=== PATIENT | female | born 1995 | race Caucasian/White ===

== ENCOUNTER 2016-11-13 23:20 | Observation (INO) ==
--- NOTE | 2016-11-18 18:33 | OB/GYN Progress Note ---
Date of Encounter: 11/13/16 Time of Encounter: 23:50 - Assessment and Plan (1) 37 weeks gestation of Status: Acute Pt presents with c/o contractions. She is having irregular contractions and no cervical change. Will d/c home. Labor precautions given. (2) False labor Status: Acute Subjective - Subjective Principal diagnosis: Contractions Interval history: Pt presents with c/o contractions. No vb or lof, + GFM Objective - Exam FHR: category 1
== END 2016-11-14 02:32 | disposition home or self-care (01) ==
LOC: 1NENULAB
PROVIDERS: ADMIT Obstetrics & Gynecology; ATTEND Obstetrics & Gynecology

== ENCOUNTER 2016-11-22 19:50 | Observation (INO) ==
[2016-11-22 21:04] LABS: Bilirubin,Urine Negative (Negative); Blood,Urine Negative (Negative); Clarity,Urine Cloudy (Clear); Color,Urine Yellow (Yellow); Glucose,Urine (UA) Normal (Normal); Ketones,Urine Negative (Negative); Leukocyte Esterase,Urine Trace (Negative); Nitrite,Urine Negative (Negative); PH,Urine 5.5 pH Units (5.0-8.0); Protein,Urine Negative (Neg-Trace); Specific Gravity,Urine 1.015 (1.010-1.025); Urobilinogen,Urine Normal (Normal)
[2016-11-22 21:08] LABS: Bacteria,Urine Few per hpf (None-Few); Hyaline Casts,Urine None Seen per lpf (None-Few); RBC,Urine 0-3 per hpf (0-3); Squamous Epithelial Cell,Urine Many per lpf (None-Few)
--- NOTE | 2016-11-22 21:38 | OB/GYN Progress Note ---
Date of Encounter: 11/22/16 Time of Encounter: 21:36 - Assessment and Plan (1) 38 weeks gestation of Current Visit: Yes Status: Acute (2) False labor Current Visit: No Status: Acute Subjective - Subjective Principal diagnosis: contractions, possible LOF Interval history: 21 yo at 38 weeks gestation presents with possible LOF and contractions since last week. Objective - Vital Signs Vital Signs: Intake and Output 11/22/16 11/22/16 11/22/16 07:59 15:59 23:59 Other: Weight 74.2 kg Patient Weight 11/22/16 23:59 Weight 74.2 kg - Exam FHR: category 1 Auscultation: bilateral: normal Abdomen: Present: gravid Cervical dilation: 3 Cervix effacement: 70 station: -2 - Labs Labs: Abnormal lab results Urine Clarity Cloudy (Clear) A 11/22/16 20:50 Ur Leukocyte Esterase Trace (Negative) H 11/22/16 20:50 Urine Microscopic WBC 5-15 per hpf (0-3) H 11/22/16 20:50 Ur Squamous Epith Cells Many per lpf (None-Few) H 11/22/16 20:50 Ur Culture Indicated? YES (NO) A 11/22/16 20:50
== END 2016-11-22 21:43 | disposition home or self-care (01) ==
LOC: 1NENULAB
PROVIDERS: ADMIT Obstetrics & Gynecology; ATTEND Obstetrics & Gynecology

== ENCOUNTER 2016-11-28 08:00 | Inpatient (IN) ==
--- NOTE | 2016-11-28 08:37 | OB/GYN History & Physical ---
Date of Encounter: 11/28/16 Time of Encounter: 08:35 Assessment and Plan (1) 39 weeks gestation of Current visit: Yes Status: Acute (2) Susceptible to Varicella (non-immune), currently in third trimester Current visit: Yes Status: Acute (3) Elective induction of labor planned Current visit: Yes Status: Acute History of Present Illness HPI: Ms. Hoover is a 21 year old female with an EDC of 12/02/16 at 39 weeks and 3 days for induction of labor. See full H&P in eCW. GBS screen negative, Rubella Immune, Varicella Non-Immune, A positive. 1 hr GTT abnormal, 3 Hr GTT WNL. U/S last Monday with EFW 3637 grams (84%) with an SARAH 8.9 cm. Past Med Surg Social Fam HX - Past Medical History Medical history: no medical history Psychiatric history: no psych history - Social History Smoking Status: Never smoker Alcohol use: none Drug use: none - Family History Father Adopted: No Family Member Ethnicity: Non- Living Status: Hx Family Cardiac Disorders: Yes (htn) Hx Family Respiratory Disorders: No Hx Family Cancer: No Hx Family GI Disorders: Yes (cyrosis) Hx Family Endocrine Disorder: Yes (diabetes) Hx Family Neuromuscular Disorders: No Hx Family Neurologic Disorders: No Hx Family HEENT Disorders: No Hx Family Autoimmune Disorders: No Medications and Allergies Ferrous Sulfate 325 mg PO DAILY 11/22/16 [History] Formula Tablet 1 tab PO DAILY 11/22/16 [History] Allergies No Known Allergies Allergy (Verified 11/22/16 19:53) Exam - Cervix Dilation: 4 Effacement: 80 Station: -1 Results All other labs normal.
[2016-11-28] MEDS ORDERED: Metoclopramide 10 MG/2 ML VIAL IVP PRN (08:41)
[2016-11-28] MEDS ORDERED: miSOPROStol 25 MCG TABLET PO PRN (08:41)
[2016-11-28] MEDS ORDERED: Famotidine 20 MG/2 ML VIAL IVP PRN (08:41)
[2016-11-28] MEDS ORDERED: *HR* Nalbuphine 20 MG/ML AMPUL IVP PRN (08:44)
[2016-11-28 09:25] LABS: Basophils % 0.3 %; Eosinophils # 0.2 K/mcL (0.0-0.6); Eosinophils % 1.7 %; Hematocrit 38.2 % (35.3-44.9); Hemoglobin 12.3 g/dL (11.5-15.4); Immature Granulocytes % 0.3 % (0-4); Lymphocytes # 1.8 K/mcL (0.6-4.6); Lymphocytes % 17.9 %; Mean Corpuscular HGB Conc 32.2 g/dL (31.6-35.5); Mean Corpuscular Hemoglobin 26.2 pg (28.0-33.3); Mean Corpuscular Volume 81.3 fL (83.0-100.0); Mean Platelet Volume 11.9 fL (9.4-12.4); Monocytes # 0.6 K/mcL (0.0-1.3); Monocytes % 6.1 %; Neutrophils # 7.6 K/mcL (1.6-8.9); Platelet Count 247 K/mcL (140-400); Red Cell Distribution Width 15.6 % (11.5-14.5); Segmented Neutrophils % 73.7 %
--- NOTE | 2016-11-28 09:28 | Anesthesia Evaluation PreOp ---
Addendum entered and electronically signed by Adams Brito CRNA 11/28/16 09: 30: Laboratory Tests 11/28/16 08:40 WBC 10.3 Hgb 12.3 Hct 38.2 Plt Count 247 Original Note: Date of Encounter: 11/28/16 Time of Encounter: 09:26 - Past History Planned Operation: nela Cardiac History: Denies any Significant Hx Pulmonary History: Denies Any Significant HX DERMATOLOGY SPECIALIST History: Denies Any Significant HX Other Medical History: Denies Any Significant HX, Renal (lithiasis) Anesthesia History: No Prior Anesthetic Complications, Past Anesthesia (kidney stone extraction) : Yes (, 39 weeks) Alcohol Use: none Drug use: none Medications and Allergies No Known Home Drugs 11/28/16 [History] Allergies No Known Allergies Allergy (Verified 11/28/16 08:52) - Meds/Allergy Pre-op Review Medications Reviewed: Yes Allergies Reviewed: Yes Beta Blockers on Current Med List: No Anesthesia Exam O2 Sat Height 1.5 m Weight 74.8 kg bp 130/76 Height: 49 Weight: 74 - HEENT Pupil (Motor): Pupils equal Mallampati: II Teeth: Normal Oral Opening: Greater than 3 - DERMATOLOGY SPECIALIST LOC: Oriented DERMATOLOGY SPECIALIST Motor: Normal RUE, Normal LUE, Normal RLE, Normal LLE, Normal Face DERMATOLOGY SPECIALIST Sensory: Normal: RUE, LUE, RLE, LLE, Face - Cardiac Rhythm: Regular Murmur: None JVD: No Carotid Bruit: No - Pulmonary Breath Sounds: bilateral Clear Respiratory Effort: Symmetrical Anesthesia Assess/Plan ASA Score: 2 Modified Kadi Scale for Level of Consciousness: Cooperative, oriented, and tranquil Anesthetic Plan: Regional Monitoring Plan: Standard Monitors
[2016-11-28] MEDS ORDERED: Ringers Solution, Lactated 1,000 ML ONE (12:40)
--- NOTE | 2016-11-28 12:40 | OB Labor Progress Note ---
Date of Encounter: 11/28/16 Time of Encounter: 12:38 Labor Progress Note - Subjective Subjective: Patient breathing through contractions. Discussed POC with patient. Patient denies any questions or concerns. - Cervix Cervix: 5.5/90/-1 - Heart Tones Heart Tones: 145 bpm moderate variability +15x15 accels no decels noted. Cat. 1 tracing. - [place]: 1-2.5 min apart. - Interventions Interventions: SVE, AROM moderate amount of clear fluid. IUPC placed without difficulty. Patient tolerated well. - Plan Plan: Continue labor management. Patient may have Nubain or epidural for pain management if desires.
[2016-11-28] MEDS: Ringers Solution, Lactated 1,000 ML IVC SCH ×2 (12:49→14:18)
[2016-11-28] MEDS ORDERED: Epidural Premix (fent/bupiv) 110 ML EP ONE (12:54)
[2016-11-28] MEDS ORDERED: Bupivacaine-MPF 0.25% 10 ML VIAL ONE (12:54)
[2016-11-28] MEDS ORDERED: *HR* FentaNYL (PF) 100 MCG/2 ML VIAL ONE (12:54)
[2016-11-28] MEDS ORDERED: Ondansetron 4 MG/2 ML VIAL IVP PRN (13:23)
[2016-11-28] MEDS ORDERED: EPHEDrine 50 MG/ML VIAL IVP PRN (13:23)
[2016-11-28] MEDS ORDERED: Bupivacaine-MPF 0.25% 10 ML VIAL EP ONE (13:23)
[2016-11-28] MEDS ORDERED: *HR* FentaNYL (PF) 100 MCG/2 ML VIAL EP ONE (13:23)
[2016-11-28] MEDS ORDERED: Ringers Solution, Lactated 500 ML IVC ONE (13:23)
--- NOTE | 2016-11-28 13:27 | Anesthesia Procedures ---
Date of Encounter: 11/28/16 Time of Encounter: 13:00 Procedures: Anesthesia - Epidural/Spinal Patient ID/Chart reviewed: Yes Patient examined: Yes OB Eval: Contractions: Non-stressed pattern Supplemental Oxygen: None/Room Air Site Prep: Aseptic Technique, 0.5% Chlorhexidine/Alcohol Patient position: upright Local Anesthetic: Lidocaine 1% Amount of Local Anesthetic used: 3 Touhy Needle Gauge: 18 Touhy Needle Depth (cm): 5 Catheter Depth at Skin (cm): 10 Test Dose (1.5% Lido + Epi): Volume given (mls): 3 Test Dose Result: Negative Loading Dose: 0.25% Marcaine (mls): 4 Loading Dose: Fentanyl (mcg): 100 Loading Dose: Other: 2ml nss Loading Dose Administered: Thru Touhy Needle Infusion Med: 0.125% Bupivacaine w/ 2 mcg/ml Fentanyl Infusion Rate (mls/hr): [address]: Tegaderm Interspace Used: L3-L4 Loss of Resistance (MARLENA): Yes Blood: No CSF: No Paresthesia: No Procedure: STRICT ASEPSIS, GOOD MARLENA, FHR UNCHANGED,
[2016-11-28] MEDS ORDERED: Epidural Premix (fent/bupiv) 110 ML EP SCH (13:30)
--- NOTE | 2016-11-28 15:50 | OB Labor Progress Note ---
Date of Encounter: 11/28/16 Time of Encounter: 15:48 Labor Progress Note - Subjective Subjective: Patient resting with epidural in place. Patient denies any pain at this time. - Cervix Cervix: 9.5/100/+1 - Heart Tones Heart Tones: 145 bpm moderate variability +15x15 accels - [place]: 1-2 min apart - Interventions Interventions: SVE, patient repositioned - Plan Plan: Continue labor management
[2016-11-28] MEDS ORDERED: Oxytocin 20 units/ LR 1000 mL 20 UNIT/1,000 ML BAG IVC ONE ×3 (16:02→22:21)
[2016-11-28] MEDS ORDERED: Lidocaine 1% 20 ML MDV ONE ×2 (18:04→18:42)
[2016-11-28] MEDS ORDERED: Chloroprocaine/PF 20 ML VIAL INFILT ONE (18:49)
--- NOTE | 2016-11-28 19:06 | Anesthesia Progress Note ---
Date of Encounter: 11/28/16 Time of Encounter: 19:04 Anesthesia Note - Note Note: 11/28/16 19:04 Called to room post delivery for significant tear and need for pain control during repair. 15cc 3% chloroprocaine given via epidural. T8 level sensory analgesia obtained. BP monitored q2-3 minutes post bolus.
--- NOTE | 2016-11-28 19:34 | OB/GYN Procedure Note ---
Delivery - Delivery Date: 11/28/16 Provider: Arabella Johnson Intrapartum events: none Delivery induction: misoprostol Delivery augmentation: rupture of membranes Delivery monitor: external FHT, external uterine, internal uterine Anesthesia: epidural Estimated Blood Loss: 500 - (s) A Infant Delivery Date: 11/28/16 Infant Delivery Time: 18:33 Presentation: vertex Position: CHACE Route of delivery: Gender: Male Viability: Viable Pounds: 8 Ounces: 5 Weight Gram: 3765 kg at 1 minute: 8 at 5 mins: 9 Shoulder Dystocia: not encountered Placenta: spontaneous Cord: 3 umbilical vessels - Repair Episiotomy: none Laceration Description: Perineal - 2nd Degree, Vaginal, Labial - Complications Delivery complications: none - Disposition Mom disposition: stable in LDR disposition: stable in LDR - Comments Comments: Patient progressed to complete dilatation and had a spontaneous vaginal delivery of a viable male infant. scores were 8 and 9 at one and 5 minutes respectively, and the weighed 8 lbs. 5 oz. Placenta delivered spontaneously and appeared to be intact. She had extensive lacerations including a right labial, bilateral vaginal vault, and a second-degree perineal laceration. These were all repaired with 304 4-0 Vicryl suture. All sponge needle and instrument counts reported as correct assessment loss 500 mL. No shoulder dystocia was encountered, no nuchal cord was present. Rectal sphincter muscle was intact.
[2016-11-28] MEDS ORDERED: Benzocaine/Menthol 56 GM AEROSOL SPRAY TP PRN (22:21)
[2016-11-28] MEDS ORDERED: Acetaminophen 325 MG TABLET PO PRN (22:21)
[2016-11-28] MEDS ORDERED: *HR* HYDROcodone/Acet 5/325 mg TABLET PO PRN (22:21)
[2016-11-28] MEDS ORDERED: Oxytocin 20 units/ LR 1000 mL 20 UNIT/1,000 ML BAG IV SCH (22:21)
[2016-11-28] MEDS ORDERED: Measles/Mumps/Rubella Vacc 0.5 ML VIAL SQ PRN (22:21)
[2016-11-28] MEDS ORDERED: Lanolin 7 G OINT...G. TP PRN (22:21)
[2016-11-28] MEDS ORDERED: Ibuprofen 600 MG TABLET PO PRN (22:21)
[2016-11-29 03:54] LABS: Basophils % 0.2 %; Eosinophils % 0.1 %; Hematocrit 29.8 % (35.3-44.9); Immature Granulocytes % 0.5 % (0-4); Lymphocytes # 1.7 K/mcL (0.6-4.6); Lymphocytes % 9.9 %; Mean Corpuscular HGB Conc 32.2 g/dL (31.6-35.5); Mean Corpuscular Hemoglobin 25.9 pg (28.0-33.3); Mean Corpuscular Volume 80.5 fL (83.0-100.0); Mean Platelet Volume 11.9 fL (9.4-12.4); Monocytes # 1.1 K/mcL (0.0-1.3); Monocytes % 6.3 %; Platelet Count 216 K/mcL (140-400); Red Cell Distribution Width 15.5 % (11.5-14.5)
[2016-11-29 03:55] LABS: Hemoglobin 9.6 g/dL (11.5-15.4); Neutrophils # 13.9 K/mcL (1.6-8.9)
--- NOTE | 2016-11-29 08:51 | Discharge Summary ---
Date of Encounter: 11/29/16 Time of Encounter: 08:49 - Discharge Diagnosis (1) Status post vaginal delivery Priority: Primary Status: Acute Comments: continue routine care discharge home today (2) Breast feeding status of mother Priority: Secondary Status: Acute Comments: support (3) anemia Priority: Secondary Status: Acute Comments: continue ferrous sulfate daily - Discharge Medications Prescriptions: Ibuprofen [Motrin] 600 mg PO Q6HR PRN #60 tablet PRN Reason: Cramping Breast Pump [BREAST PUMP] 1 each .ROUTE AD #1 each Ferrous Sulfate 325 mg PO DAILY #30 tablet Home Medications: Breast Pump [BREAST PUMP] 1 each .ROUTE AD #1 each 11/29/16 [Rx] Ferrous Sulfate 325 mg PO DAILY #30 tablet 11/29/16 [Rx] Ibuprofen [Motrin] 600 mg PO Q6HR PRN #60 tablet 11/29/16 [Rx] Vit/FA 1 each PO DAILY tablet 11/29/16 [Rx] Allergies/Adverse Reactions: Allergies No Known Allergies Allergy (Verified 11/28/16 08:52) Data Procedures and tests throughout hospitalization: Laboratory Tests 11/28/16 11/29/16 08:40 03:26 WBC 10.3 16.8 H D RBC 4.70 3.70 L Hgb 12.3 9.6 L D Hct 38.2 29.8 L MCV 81.3 L 80.5 L MCH 26.2 L 25.9 L MCHC 32.2 32.2 RDW 15.6 H 15.5 H Plt Count 247 216 MPV 11.9 11.9 Immature Gran % 0.3 0.5 Seg Neutrophils % 73.7 83.0 Lymphocytes % 17.9 9.9 Monocytes % 6.1 6.3 Eosinophils % 1.7 0.1 Basophils % 0.3 0.2 Neutrophils # 7.6 13.9 H Lymphocytes # 1.8 1.7 Monocytes # 0.6 1.1 Eosinophils # 0.2 0.0 Basophils # 0.0 0.0 Labs on day of discharge: Labs from last 24 hours 11/29/16 11/28/16 03:26 08:40 WBC 16.8 H D 10.3 RBC 3.70 L 4.70 Hgb 9.6 L D 12.3 Hct 29.8 L 38.2 MCV 80.5 L 81.3 L MCH 25.9 L 26.2 L MCHC 32.2 32.2 RDW 15.5 H 15.6 H Plt Count 216 247 MPV 11.9 11.9 Immature Gran % 0.5 0.3 Seg Neutrophils % 83.0 73.7 Lymphocytes % 9.9 17.9 Monocytes % 6.3 6.1 Eosinophils % 0.1 1.7 Basophils % 0.2 0.3 Neutrophils # 13.9 H 7.6 Lymphocytes # 1.7 1.8 Monocytes # 1.1 0.6 Eosinophils # 0.0 0.2 Basophils # 0.0 0.0 Date of admission: 11/28/16 08:25 Primary care physician: PCP NO Consults: 11/28/16 22:21 Consult to Emu Farmer [CONS] Routine Comment: Vaginal delivery, consult needed Discharging clinician: Tina Kasper Anticipated date of discharge: 11/29/16 - Patient Status Disposition: Home, Self-Care Condition: Good Functional capacity at discharge: independent ambulation - Discharge Instructions Follow Up With: NO,PCP [Primary Care Provider] - Arabella Johnson DO [Partnered Physician] - - Diet and Activity Activity: increase activity as tolerated Diet: regular diet Hospital Course Reason for admission: induction of labor Delivery: Episiotomy: none Laceration: none Other procedures: none complications: none Discharge diagnosis: IUP at term delivered [place] baby: male (breast feeding) Time Attestation: Total time spent providing and/or coordinating discharge services: Time Spent: Less than 30 minutes Exam - Constitutional Vitals: Temp Pulse Resp BP Pulse Ox 98.6 F 89 14 100/55 99 11/29/16 06:38 11/29/16 06:38 11/29/16 06:38 11/29/16 06:38 11/29/16 06:38 General appearance IM: A&O X 3, pleasant, answers questions appropriately - Respiratory Respiratory exam: Present: CTAB - Cardiovascular Cardiovascular exam IM: Present: RRR, +S1, +S2 - GI/Abdominal GI/Abdominal exam IM: normal bowel sounds - Uterine Tone: Firm Uterus Position: 2 Fingers Below Umbilicus, Midline - Extremities Exam Extremities exam IM: Present: full ROM, normal capillary refill, normal inspection - Neurological Exam Neurological exam: oriented X3, reflexes normal
[2016-11-29] MEDS ORDERED: Prenatal Vit/FA 1 EACH TABLET PO SCH (09:00)
[2016-11-29 16:16] VITALS: BP 116/73
== END 2016-11-29 20:58 | disposition home or self-care (01) | DRG 775 ==
LOC: 1NENULAB 08:25 → 1NENUOBS 22:18